=== PATIENT | male | born 1940 | race Caucasian/White ===

== ENCOUNTER 2023-08-20 10:42 | Day surgery (SDC) | payer MEDICARE, OTHER, SELFPAY ==
[2023-08-06 10:35] VITALS: BMI 36.9
[2023-08-20] VITALS (19 sets, daily range): BP systolic 101–150; BP diastolic 55–98; PULSE 46–74; RESP 12–18; TEMP 35.9–36.8; O2SAT 86–98; BMI 36.9
[2023-08-20] MEDS: LACTATED RINGERS 1,000 ML 84 ML IV (11:52)
--- NOTE | 2023-08-20 12:20 | PM.PREOP ---
Pre-operative Note Interval Note History & Physical reviewed/Exam performed by Physician: Yes Changes to H&P: No
[2023-08-20] MEDS: CEFAZOLIN 2 GM/100 ML PREMIX 100 ML IV (12:50)
[2023-08-20] MEDS: ACETAMINOPHEN IV 1,000 MG/100 ML VIAL 400 MG IV (13:09)
[2023-08-20] MEDS: ROPIVACAINE/EPI/CLONIDINE/KET 50 ML SYRINGE INJ (13:12)
--- NOTE | 2023-08-20 13:16 | SUR.OPER ---
Beach chair with JESUS shoulder positioner. Lower body on padded OR bed. Head in foam padded head cradle, secured with straps. Non-operative arm secured <90 degrees abduction. Pillow under knees. Safety belt at thigh. Cloth tape over blanket over lower legs.
--- NOTE | 2023-08-20 14:29 | DI.RAD.S_ITS ---
PROCEDURE: XR SHOULDER RT 1V INDICATIONS: POST OP TOTAL SHOULDER TECHNIQUE: 1 views of the shoulder were acquired. COMPARISON: None. FINDINGS: Bones: Well-aligned, intact right shoulder arthroplasty without hardware complication. Soft tissues: Subcutaneous swelling and gas, as expected. IMPRESSION: Well-aligned, intact right shoulder arthroplasty without hardware complication. Dictated by: Kyle Stauffer M.D. on 08/20/2023 at 14:46 Approved by: Kyle Stauffer M.D. on 08/20/2023 at 14:46
[2023-08-20] MEDS: hydrOXYzine 50 MG/ML INJ 25 MG IM (14:39)
[2023-08-20] MEDS: OXYCODONE IR 5 MG TABLET PO ×2 (14:39→15:09)
[2023-08-20] MEDS: HYDROMORPHONE 1 MG INJ IV ×4 (14:53→15:25)
--- NOTE | 2023-08-20 16:15 | SUR.PHASEII ---
Pt awake, alert. Denies pain. Incentive Spirometer done up to 2500ml with good technique. O2 sat on room air 85% after IS 85%. Placed back on 2L and remains on cont pulse oximeter.
--- NOTE | 2023-08-20 16:48 | SUR.PHASEII ---
Called in to OR and spoke to Dr Herrera. Informed of patient pain. See new order for Ibuprofen. Informed that patient o2 sat on room air 80% and on 2L 98%. Incentive spirometer up to 2500ml. Daughter at bedside.
--- NOTE | 2023-08-20 17:39 | PM.OP.1 ---
Operative Date/Time/Diagnoses Date of procedure: 08/20/23 Time of procedure: 17:39 Pre-op diagnosis: Right rotator cuff arthropathy Post-op diagnosis: same Procedure & Clinicians Procedure: Reverse total shoulder arthroplasty Same procedure as scheduled: Yes Indications: Indications: This is a 82-year-old male who has rotator cuff arthropathy. Symptoms have been present for years, insidious onset. Patient has failed conservative therapy including injections, physical therapy, anti-inflammatories and activity modification. After extensive discussion in clinic, they wished to go forward with surgery. Risks and benefits were described including the risk of infection, bleeding, damage to internal structures including nerves. We also discussed the risk of failure of surgery and the need for revision surgery as well as the risk of anesthesia. The patient expressed understanding with these risks and wished to go forward with surgery. Surgeon: Jeff Navarro Flower Machine Operator: Heide Penny Operative Notes Findings: Findings: Osteoarthritis of the glenoid and humeral head as well as a defient rotator cuff as noted on preoperative imaging and under direct visualization Closure Type: primary Specimen(s): none sent Prosthetic devices, grafts, tissues, transplants, or devices: Tornier implants Base plate: 29 mm, +3 mm offset Glenosphere: 39 mm Stem: Perform 4 Poly: +0 concentric Procedure in detail: Patient was seen in the preoperative holding unit. The correct right shoulder was identified and marked with my initials. Again we discussed the risks and benefits of surgery and they wished to go forward with surgery. The patient was brought back to the operating room and placed supine on the operating table. Smooth endotracheal intubation was performed by anesthesia. All prominences were padded and they were placed into the beach chair position. Intravenous antibiotics were given. The right shoulder was then prepped with the standard sterile preparation and draping. A time-out was then performed in my initials were again identified on the correct shoulder. 1 g of IV tranexamic acid was given. A standard deltopectoral incision was made. Skin flaps were made. The cephalic vein was identified and retracted laterally. This was protected throughout the remainder of the case. Sharp dissection was made along the deltoid, subacromial and subcoracoid space to release adhesions. The conjoined tendon was identified and the axillary nerve was palpated and continuous using the tug test. It was protected throughout the remainder of the case. A brown retractor was placed underneath the deltoid muscle and a darach retractor underneath the conjoint tendon. The anterior circumflex artery and associated veins on the lower border of the subscapularis were identified and tied off using 0-Vicryl. The biceps tendon was identified in the bicipital groove. This was released from its sheath, and taken from its origin on the glenoid and tied into the pectoralis tendon for a solid tenodesis. We then began a subscapularis peel. The subscapularis was tagged with an Ethibond suture. A 360 degree circumferential release of the subscapularis was performed with protection of the axillary nerve. The coracohumeral ligament was released at the base of the coracoid. The coracoacromial ligament was left intact. The shoulder was then dislocated. Osteophytes were removed using combination of rongeur and osteotome. The rotator cuff was noted to be insufficient. An intramedullary guide was used set at version of 30?. Using an oscillating saw a conservative humeral head cut was made. Impaction reamers were reamed up to a size 4 stem with a built-in angle 135?. A neck protector was placed. Attention was then turned to the glenoid. After retracting the humeral head posteriorly a circumferential release was performed of the capsule with protection of the axillary nerve. The labrum was then released starting at the biceps anchor and going around the rim a small amount of triceps was released from the inferior glenoid. A center guide pin was then placed using the guide, followed by Reamer. After adequate cartilage was removed the center drill hole was drilled and measured. The base plate was then implanted and screwed into place. The superior drill hole was drilled and filled in a nonlocking fashion, followed by the inferior and anterior holes in locking fashion, the posterior hole was also filled. A 39 glenosphere was then selected and screwed into place onto the base plate. Turning back to the humerus, the humeral head was delivered and trialed with a 0 concentric. The arm was taken through range of motion and this was felt to be stable. The trial was then removed and a dilute Betadine wash was then performed with 1 L of sterile saline. Before placing the final implant, drill holes were made in the bicipital groove for the subscapularis repair, and sutures were passed through the drill holes. The final stem was then impacted into the humerus. The shoulder was then reduced and again brought through range of motion and was felt to be stable. The subscapularis was then repaired using a modified racking hitch with nice loupes. The deltopectoral interval was then closed with #2 Ethibond. The skin was closed with 2-0 PDS and Monocryl followed by Aquacel dressing. Patient was awoken from anesthesia and brought back to the postoperative recovery unit without issue. They were placed into a sling. Assisting participation: This operation could not have been safely performed (without compromising the technical results or length of the procedure) without the assistance of a skilled surgical dental assistant. The surgical dental assistant was medically necessary for proper positioning, retraction and manipulation of instruments, proper exposure, graft prep, and manipulation of tissue. Complications: none Post-operative Condition: stable Disposition: PACU Plan for aftercare: Postoperative instructions: Sling to remain on for 6 weeks. No external rotation past neutral for 6 weeks. Okay for the sling to come off for shower. Okay to shower over the Aquacel dressing. If any water gets underneath the dressing, remove the dressing. First postoperative visit in 2 weeks.
--- NOTE | 2023-08-20 17:56 | SUR.PHASEII ---
Informed Dr Navarro of patient Oxygen saturation of 75-80% on room air in phase II while awake and after using incentive spirometer. See order for transfer to floor. Dr Navarro also saw bruising to right biceps and distal end of dressing that was this RN marked. Approx [id number]. Pt transferred to room 202 in stretcher on 2l oxygen. Able to stand and pivot to bed. Lungs clear, alert and oriented.
[2023-08-20] MEDS: IBUPROFEN 600 MG TABLET PO (18:09)
[2023-08-20] MEDS: ACETAMINOPHEN 325 MG TABLET 650 MG PO (18:09)
[2023-08-20] MEDS: CEFAZOLIN VIAL 1 GM in SODIUM CHLORIDE 0.9% 100 ML IV (21:19)
[2023-08-20] MEDS: DOCUSATE 100 MG CAPSULE PO (21:20)
[2023-08-20] MEDS: PANTOPRAZOLE DR 20 MG TABLET PO (21:20)
[2023-08-20] MEDS: SENNOSIDES 8.6 MG TABLET 17.2 MG PO (21:20)
[2023-08-20] MEDS: ASPIRIN EC 81 MG TABLET PO (21:20)
[2023-08-20] MEDS: AMLODIPINE 5 MG TABLET PO (21:20)
[2023-08-20] MEDS: DOXAZOSIN 2 MG TABLET 8 MG PO (21:21)
[2023-08-20] MEDS: diphenhydrAMINE 25 MG TABLET PO (21:21)
[2023-08-21] MEDS: IBUPROFEN 600 MG TABLET PO ×3 (00:15→10:54)
[2023-08-21] MEDS: ACETAMINOPHEN 325 MG TABLET 650 MG PO ×3 (00:17→10:54)
[2023-08-21 00:30] VITALS: BP 134/67; PULSE 72; RESP 16; TEMP 36.6; O2SAT 95
[2023-08-21 04:00] VITALS: BP 145/61; PULSE 58; RESP 17; TEMP 36.1; O2SAT 98
[2023-08-21] MEDS: CEFAZOLIN VIAL 1 GM in SODIUM CHLORIDE 0.9% 100 ML IV (04:39)
[2023-08-21 06:04] LABS: Hematocrit 41.2 % (41-53); Hemoglobin 13.7 g/dL (13.5-17.5); Mean Corpuscular HGB Conc 33.3 % (30-36); Mean Corpuscular Hemoglobin 29.7 PG (26-34); Mean Corpuscular Volume 89.2 fL (80-100); Platelet Count 475 X10^3/uL (150-400); Red Blood Cell Count 4.62 X10^6/uL (4.5-5.9); Red Cell Distribution Width 14.7 % (11.6-14.8); White Blood Cell Count 12.4 X10^3/uL (4.5-11.0)
[2023-08-21] MEDS: ASPIRIN EC 81 MG TABLET PO (08:09)
[2023-08-21] MEDS: DULOXETINE 20 MG CAPSULE PO (08:09)
[2023-08-21] MEDS: PANTOPRAZOLE DR 20 MG TABLET PO (08:09)
[2023-08-21] MEDS: PROPRANOLOL 10 MG TABLET 80 MG PO (08:09)
[2023-08-21 09:00] VITALS: BP 138/83; PULSE 58; RESP 16; TEMP 36.9; O2SAT 100
--- NOTE | 2023-08-21 10:55 | PT.IIE ---
Current Diagnoses Other specific arthropathies, not elsewhere classified, right shoulder (08/20/23) Surgery Performed Operation Date: 08/20/23 12:15 Actual Procedures p Total Shoulder Arthroplasty - Reverse with biceps tenodesis(Right) - Jeff Navarro MD Surgical History (Last Updated 08/06/23 @ 11:17 by Nita Gomez, RN) H/O vasectomy History of cardiac cath History of total left knee replacement History of total right knee replacement Hx of LASIK Hx of lithotripsy Medical History (Last Updated 08/06/23 @ 13:43 by Nita Gomez, RN) Anesthesia complication Atherosclerosis of [place] coronary artery of [place] heart with angina pectoris Diastolic CHF Essential thrombocythemia GERD (gastroesophageal reflux disease) History of COVID-19 (09/2021) HTN (hypertension) Kidney stones ROCHELLE (obstructive sleep apnea) Right rotator cuff tear arthropathy Physical Therapy Inpatient Evaluation/Re-Eval M1 PT/OT-IP Prior Functional Status Start: 08/21/23 12:19 Freq: NEEDED Status: Active Protocol: Document 08/21/23 10:55 AB (Rec: 08/21/23 12:31 AB [id number]) Medical Review Prior Functional Status Medical History Reviewed Yes Communication able to make needs known Mobility and Gait pt stated that he was independent with all mobilities and ambulation without AD Social History Household Members spouse,children Living Arrangements Mobile home Number of Floors (Floors) One Floor Number of Stairs To Enter/Railing? 3 steps bilateral rails to enter the house Home Environment High Toilet,Walk in Shower Home Equipment Front Wheel Walker,Straight Cane,Hand Held Shower,Grab Bars Near Toilet Additional Social History Comment pt will have his spouse and son at home to assist him and also has a duaghter who can come in to assist pt plans to sleep in his recliner at home M2 PT-IP Current Condition Start: 08/21/23 12:19 Freq: NEEDED Status: Active Protocol: Document 08/21/23 10:55 AB (Rec: 08/21/23 12:31 AB [id number]) Physical Therapy Current Condition Current Condition Evaluation Date 08/21/23 Treatment Diagnosis s/p R TSA reverse; difficulty in walking Onset Date 08/20/23 M3 PT-IP Subjective Start: 08/21/23 12:19 Freq: NEEDED Status: Active Protocol: Document 08/21/23 10:55 AB (Rec: 08/21/23 12:31 AB [id number]) Subjective Physical Therapy Visit Type Type Initial Evaluation Visit Start Time 10:55 Visit Stop Time 11:25 Number of MAT WEAVER Visits 0 Physical Therapy Visit Comments Patient Comments agreeable to do PT Therapy Pain Assessment Pain Present Pain Present Denied Pain M4 PT-IP Mobility and Gait Start: 08/21/23 12:19 Freq: NEEDED Status: Active Protocol: Document 08/21/23 10:55 AB (Rec: 08/21/23 12:31 AB [id number]) PT-Bed Mobility Assessment Supine to Sit Supine to Sit Maximum Assistance,1 Person Assistance,2 Person Assistance ,Head of Bed Elevated,Bedrails PT-Transfer Assessment Sit to and From Stand Sit to and from Stand Standby Assistance,1 Person Assistance Equipment Transfer Assistive Device None,Gait Belt Orthotic/Prosthetic Devices or Brace: Yes Transfers Transfer Destination Chair Transfer Technique ambulated Transfer Ability Level of Assist Standby Assistance,1 Person Assistance,Use of Upper Extremities Comments Mobility Comments pt supine in bed. spouse in room pt agreeable to do PT. obtained PLOF and home set up from pt and spouse. spouse stated that they were shown on how to manage pt's sling during pre-op visit with ortho doctor. educated pt and spouse regarding pt's R shoulder precautions, NWB and HEP. pt completed supine to sit max A x 1-2 and max cues. HOB elevated ~ 25 deg. pt stated that he plans to sleep on his recliner upon d/c. pt able to sit on EIB SBA. spouse managed pt's sling. pt completed pendulum, elbow/ wrist/hand exercises. spouse was able to assist pt with sling. pt ambulated in room without AD SB and agreed to do stairs. pt ambulated in the hallway without AD ~ 125 ft SBA. pt completed up/down stairs using L rail ascending SBa. completed 2 sets. pt ambulated back to his room and sat on the chair. positioned pt on the chair. call light and table placed within reach. pt and spouse without further concerns. NAC came in room and assist pt. Gait Assessment Gait Gait Assistance Required: Standby Assistance Distance (Feet) 125 Able to Maintain Weight Bearing Status Yes During Gait Assistive Devices Assistive Device None,Gait Belt Orthotic/Prosthetic Devices or Brace: Yes Gait Deviations General Gait Pattern Ataxic,Decreased Stride Length ,Decreased Feet Clearance Factors Limiting Gait Function Factors Limiting Gait Function Decreased Activity Tolerance, Decreased Strength,Limited Range of Motion,Poor Balance, Poor Safety Awareness Stair Climbing Assessment Evaluation Level of Assist On Stairs Standby Assistance Devices Stair Climbing Assistive Devices Left Railing Technique/Endurance Stair Climbing Direction Ascend and Descend Stair Climbing Technique Step to Step Number of Steps Climbed 3 Query Text: Stair Climbing Set # Repetitions (reps) 2 PT-Balance Assessment Sitting Balance and Reactions Static Sitting Balance Ability Normal Dynamic Sitting Balance Ability Good Standing Balance and Reactions Static Standing Balance Ability Good Dynamic Standing Balance Ability Fair Device Used without AD M5 PT-IP Objective Assessments Start: 08/21/23 12:19 Freq: NEEDED Status: Active Protocol: Document 08/21/23 10:55 AB (Rec: 08/21/23 12:31 AB [id number]) Orientation Orientation/Cognition Level of Alertness Alert Orientation Name,Place,Situation Language Function Ability Hard of Hearing Safety Awareness Decreased Safety Awareness Memory Description No Deficits Noted Gross Range of Motion Lower Extremity ROM Assessment Within Functional Limits Strength Lower Extremity Strength Assessment Within Functional Limits Muscle Tone Muscle Tone WNL Yes M6 PT-IP Treatment Start: 08/21/23 12:19 Freq: NEEDED Status: Active Protocol: Document 08/21/23 10:55 AB (Rec: 08/21/23 12:31 AB [id number]) Physical Therapy Treatment Exercises Exercises Shoulder Pendulums,Elbow Flexion/Extension,Wrist ROM, Hand ROM Education Education Provided Precautions,Weight Bearing Status,Post-Op Packet,Safety M7 PT-IP Assessment and Plan Start: 08/21/23 12:19 Freq: NEEDED Status: Active Protocol: Document 08/21/23 10:55 AB (Rec: 08/21/23 12:31 AB [id number]) PT Summary Assessment and Plan Potential Rehabilitation Potential Fair Status of Condition at Evaluation Stable Summary Impairments Pain,ROM,Strength,Balance, Coordination,Sensation,Tone, Cognition,Bed Mobility, Transfers,Gait,Activity Tolerance Assessment Summary pt is an 82 y/o M s/p R TSA reverse POD 1. pt is NWB on RLE and has shoulder precautions. pt requiring max A x 1-2 with bed mobility but plans to sleep on his recliner for now. pt requiring SBA with transfers and ambulation without AD and plans to go home with spouse to assist him. spouse was able to assist pt with sling management. pt may go home when medically stable. Goals Bed Mobility Goal Independent Transfer Goal Independent Gait Goal Independent Gait Distance 250 Other Goals up/down 3 steps L rail ascending mod I Days to Meet Goals 3 Frequency of Treatment Frequency Of Treatment Twice a Day Treatment Plan Physical Therapy Treatment Plan Bed Mobility Training,Transfer Training,Gait Training, Therapeutic Exercise,Balance Retraining,Post Op Education, Discharge Planning,Hot or Cold Pack,Neuromuscular Re-ed, Coordination Retraining,Manual Therapy Precautions Shoulder Precautions Sling,PROM,Internal Rotation to Body,No External Rotation, No Abduction,Forward Flexion to 90 degrees,Pendulums Weight Bearing Status Weight Bearing Status Non-Weight Bearing Allowed Weight Bearing Amount (enter % RUE NWB or #) (%) Recommendations To Nursing Amount of Assist Needed Standby Assistance Discharge Recommendations PT Discharge Recommendations Home with Assistance, Outpatient PT Transportation Needs at Discharge Private Vehicle
--- NOTE | 2023-08-21 11:30 | CM.DANOTE ---
Initial DCP Assessment Visit Note Reviewed EMR and team rounds for pt's medical status and anticipated home d/c needs. Did not meet with pt f/f as he was busy working with PT at the time of this assessment. Pt resides independently in his mobile home with his and family. No needs were identified for DCP assistance during this admission. Plan is for OP f/u with Ortho for postoperative wound check, OP PT, home with assistance. Family will provide transport early this afternoon for d/c. Payor: Medicare Attending: Dr. Navarro Pt is a 82 year-old M with a PMH of worsening shoulder pain over the last year, despite trying conservative therapies such as exercise modification, ice, injections, and anti-inflammatories. He completed his R-reverse total shoulder arthroplasty yesterday, has worked with therapies this am and is now ready for d/c home with family. He has all of the DME and home care instructions as directed to by Ortho. Discharge Planning/Care Management CM Discharge Assessment Start: 08/21/23 11:26 Freq: Status: Active Protocol: Document 08/21/23 11:29 DPL (Rec: 08/21/23 11:30 DPL [id number]) Discharge Planning Assessment Assigned Sponge Clipper DIANNA Sauceda Advance Directives? Yes Advance Directives on File No History Provided By Medical Record Expected Length of Stay 1 Has Patient been admitted in last 30 No days? Prior Living Arrangements Mobile home Household Members spouse,children Type of transporation used prior to Drives own vehicle admit Independent with ADL's Yes Is patient alert and oriented? Yes Caregiver for Another No Barriers to Discharge No Discharge Plan Home Community Services Physical Therapy Transportation Arrangement Family Referrals Initiated None needed Whiteboard Updated in Patient Room with Yes name and ext. # of Sponge Clipper Review Status In Process Please Provide Date Initial DC 08/21/23 Assessment Was Performed Pre-Anesthesia Assessment Start: 08/06/23 10:25 Freq: Status: Active Protocol: Document 08/06/23 10:35 CAB (Rec: 08/06/23 11:27 CAB [id number]) Pre-Anesthesia Assessment Preferred Name Anthony or Stevo Patient Information Reviewed Via Phone Assessment Assessment Completed With Patient Diagnostic Results BMP/CMP,CBC,EKG Comment Outside labs/EKG scanned Primary Care Provider Hari Hall Seen Specialist in Last 12 Months Yes Specialist Seen Oncologist,Orthopedist Comment Oncology visit 07/13/23 scanned and in surgery folder Primary Language [place] Boss Miner Required No Height 179.07 cm Weight 118.388 kg Body Mass Index (BMI) 36.9 Hearing Ability Normal Visual Assist Magnifying Glass Dentition Type Teeth, Natural Present,Teeth, Missing Barriers to Learning None Hx Anesthesia Reactions Yes: I woke up in the middle of my knee surgery Additional comment ROCHELLE - no CPAP Hx Family Anesthesia Reaction No Hx Malignant Hyperthermia No Hx Blood Transfusions No Anesthesia Review Requested No Supervisor Decorating No alcohol intake current alcohol intake frequency holidays/special occasions only Smoking Status Former smoker how long ago did patient quit smoking Age 21 Substance Use Type does not use Pain Present Pain Reported Musculoskeletal Symptoms Joint Pain,Limited Range of Motion History of Falling (Recent or History of No ) Patient is completely paralyzed or No completely immobile Mental Status Oriented to own ability Is patient on oxygen? No Does patient have GARCIA/SOB No Hx Sleep Apnea Yes CPAP/BIPAP use prescribed not used Currently Taking a Beta Jey Yes: Propranolol Hx Chest Pain No Hx SOB No Hx Syncope or Dizziness No Anti-Coagulant Therapy Yes: ASA-advised to hold 5 days prior per Cardiology Has a Timber Packer Yes: Last visit 07/14/[address] Vallejo @ [facility] Hx Pacemaker/ICD No Pacemaker Rep Required? No Cardiac Clearance Received Yes Comment Cardiac records scanned and in surgery folder Diet Type At Home Regular Dysphagia No Gastrointestinal Symptoms Reflux Urinary Catheter Present No Hx Urinary Self Catheterization No Diabetes No Hx Drug Resistant Organism No Presence of External or Internal Medical Yes: Saurabh knee prosthesis Devices Received a COVID vaccine? Yes Received all doses? Yes Marital Status Lives With spouse,children Current Living Arrangements Mobile home Number of Floors (Floors) One Floor Support System Child/Children,Spouse Does the Patient Have Assistance After Yes Surgery Patient Discharge Plan Description Return Home Comment Pt advised same day surgery per surgeon Feels Safe in Current Environment Yes Been Physically Hurt or Threatened By a No Person in Current Environment Do you have thoughts of harming yourself None or others? Are you currently considering suicide? No Do you have a plan to hurt yourself or No Plan others? Do You Have Any Spiritual Beliefs That No May Affect Your HC Choices? Do You Have Any Cultural Practices That No May Affect Your HC Choices? Who Can We Speak to About Patient's Care Family, friends Identifying Code for Release of Patient Declines to issue Information Health Care Proxy/Next of Kin Khushboo James () Health Care Proxy Emergency Contact Name Khushboo James () Emergency Contact Advance Directives? Yes Advance Directives on File No Requested Patient Bring Advanced Yes Directives DOS Power of Project Drilling Engineer Yes Power of Project Drilling Engineer Name Khushboo James () Power of Project Drilling Engineer PAC Instructions Assistance for 24 hours post- op,Durable medical equipment, Medications to take/avoid, Nasal antibiotic,No ETOH/ petroleum product on skin DOS, NPO,Pre-surgical wash,Sensory aids,Sturdy shoes/comfortable clothes,Do not bring valuables and remove jewelry
--- NOTE | 2023-08-21 11:43 | PM.DS.1 ---
History of Present Illness History of Present Illness Chief complaint: Right Reverse Total Shoulder Arthroplasty 08/19 Narrative: Stevo is a pleasant 82 year old male who is POD#1 s/p Right reverse total shoulder arthroplasty by Dr. Navarro. Patient reports he is doing well overall, has post-op PT scheduled and post-op medications at home already. Pain is mild and well-controlled with oral pain medication. Patient lives at home with family who are willing and able to aid in his post-op care. Denies fever, chills, chest pain, SOB, nausea, vomiting. Operative Date/Time/Diagnoses Date of procedure: 08/20/23 Time of procedure: 17:39 Pre-op diagnosis: Right rotator cuff arthropathy Post-op diagnosis: same Procedure & Clinicians Procedure: Reverse total shoulder arthroplasty Same procedure as scheduled: Yes Indications: Indications: This is a 82-year-old male who has rotator cuff arthropathy. Symptoms have been present for years, insidious onset. Patient has failed conservative therapy including injections, physical therapy, anti-inflammatories and activity modification. After extensive discussion in clinic, they wished to go forward with surgery. Risks and benefits were described including the risk of infection, bleeding, damage to internal structures including nerves. We also discussed the risk of failure of surgery and the need for revision surgery as well as the risk of anesthesia. The patient expressed understanding with these risks and wished to go forward with surgery. Surgeon: Jeff Navarro Catering Associate: Heide Penny Discharge Providers Provider Discharge Date: 08/21/23 Primary care physician: TOBI Gutierrez Consults: 08/20/23 17:20 Consult to Discharge Planning Routine Comment: Consult to Physical Therapy Evaluate & Treat Comment: Physician Instructions: Evaluate and Treat Discharge provider: Heide Penny PA-C Summary Hospital Course Discharge Diagnosis: Stable s/p right reverse total shoulder arthroplasty. Hospital Course: Hospital course complicated by postoperative bradycardia, now resolved. Exam Vital Signs (past 8 hours): - 08/21/23 04:00 08/21/23 09:00 Temperature 97.0 F L 98.5 F Pulse Rate 58 L 58 L Respiratory Rate 17 16 Blood Pressure 145/61 H 138/83 Pulse Oximetry 98 100 Oxygen Flow Rate 2 Oxygen Delivery Method Nasal Cannula Oxygen Flow Rate 2 Narrative Exam Narrative: Sitting comfortably in bedside chair during the interview today wearing his sling. Resp Effort & Inspection: normal respiratory effort and able to speak in complete sentences Cardio Other: Brisk capillary refill pulses intact. Skin Other: Clean and dry Aquacel dressing in place without any drainage. There is ecchymosis distal to Aquacel dressing. 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 Sensation intact throughout the right upper extremity. Psych Appearance: grossly normal Mental Status: mental status grossly normal Speech and Movement: speech and movement normal Objective Labs 08/21/23 05:53 Labs: Laboratory Results - last 24 hr 08/21/23 05:53 WBC 12.4 H RBC 4.62 Hgb 13.7 Hct 41.2 MCV 89.2 MCH 29.7 MCHC 33.3 RDW 14.7 Plt Count 475 H [facility] Medical History (Updated 08/06/23 @ 13:43 by Nita Gomez RN) Anesthesia complication Right rotator cuff tear arthropathy Kidney stones GERD (gastroesophageal reflux disease) ROCHELLE (obstructive sleep apnea) History of COVID-19 (09/2021) Diastolic CHF HTN (hypertension) Atherosclerosis of [place] coronary artery of [place] heart with angina pectoris Essential thrombocythemia Surgical History (Updated 08/06/23 @ 11:17 by Nita Gomez RN) Hx of lithotripsy H/O vasectomy 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 Okay to shower, however, no soaking the incision site in pools or tubs. No topical ointments or creams to the incision site. 2) Continue multimodal pain management. His postop medications at home. Ice to the shoulder for additional pain control. 3) Work on appropriate mobility with outpatient PT. worsening as instructed, no external rotation past neutral for 6 weeks. 4) Follow-up as scheduled at [facility] in 2 weeks. All patient's and his family's questions were answered and they are in agreement with the treatment plan. Our office if any questions or concerns arise. Discharge to home today with family. Discharge Plan Discharge Plan Patient Disposition: Home Nursing Discharge Comment: You were given Oxycodone IR 10 mg at 3:00 pm. You may start the [place] at 7pm. You were given Tylenol 975 mg at 1 pm. Start Ibuprofen when pain starts then every 6 hours. Discharge orders & Medications Discharge Orders: Discharge (Order); Ordered 08/21/23 Ordered By: Yobani Tarango Prescriptions: New hydrocodone-acetaminophen 5-325 mg tablet 1 tab PO Q6H PRN (Reason: pain) Qty: 20 0RF ondansetron HCl 4 mg tablet 4 mg PO Q8H PRN (Reason: nausea and vomiting) Qty: 10 0RF aspirin 81 mg tablet,chewable 81 mg PO BID 28 Days Qty: 56 0RF ibuprofen 600 mg tablet 600 mg PO Q6H PRN (Reason: pain) Qty: 60 0RF Continued hydroxyurea 500 mg Capsule 500 mg PO QAM lisinopril 20 mg Tablet 20 mg PO DAILY amlodipine 5 mg Tablet 5 mg PO BEDTIME propranolol 40 mg Tablet 80 mg PO QAM doxazosin 8 mg Tablet 8 mg PO BEDTIME diphenhydramine HCl [Benadryl Allergy] 25 mg Tablet 25 mg PO BEDTIME omeprazole 20 mg Capsule,Delayed Release(Dr/Ec) 20 mg PO BID duloxetine 20 mg Capsule,Delayed Release(Dr/Ec) 20 mg PO DAILY Discontinued aspirin [Aspir-81] 81 mg Tablet,Delayed Release (Dr/Ec) 81 mg PO BID Follow up/Referrals: Jeff Navarro MD [Physician] - (Follow up at [facility] as scheduled in 2 weeks. ) Hari Hall ARNP [Primary Care Provider] - Diet/Activity/Treatments Diet: Diet as Tolerated Activity: Remain in sling for 6 weeks, no external rotation past neutral. Cold/Heat Therapy: Ice to the shoulder for additional pain control Skin/Wound/Dressing Care Report to your healthcare provider any signs of infection, such as:: chills, fever, night sweats, unusual drainage and unusual redness Dressing: Keep dressing intact, clean and dry until 2 week post-op appointment. Okay to shower over the dressing but no soaking the incision site in pools or tubs. No topical ointments or creams to the incision site. Visit Report/Discharge Packet Instructions: DI for Prescription Opioid Use, DI for Shoulder Replacement Stand Alone Forms: Surgery Discharge Discharge Data Primary Care Provider: Hari Hall Attending Provider: Jeff Navarro VTE Deep Vein Thrombosis/Pulmonary Embolism Present on Admission: No
== END 2023-08-21 11:40 | disposition home or self-care (01) ==
LOC: OR 10:44 → AC 10:45
PROVIDERS: PCP Nurse Practitioner Family; Referring Provider Orthopaedic Surgery; Visit Provider Orthopaedic Surgery
PROC: (CPT 23472; principal; 2023-08-20 12:15)
DX: M19.011 Primary osteoarthritis, right shoulder (principal); M25.711 Osteophyte, right shoulder
CPT/HCPCS: 23472; 36415; 73020; 85027; 97161; 97530; C1776; J0136; J0690; J1100; J1170; J2704; J3010; J3410; J3490